=== PATIENT | male | born 1980 | race Caucasian/White ===

== ENCOUNTER 2025-10-17 21:22 | Emergency (ER) | payer MEDICAID, OTHER ==
[~2025-10-17] VITALS: Ht 167.6 cm; Wt 70.3 kg
[2025-10-17] MEDS: IV NS 0.9% 1,000 ML BAG IV ONE ×2 (22:00→23:00)
[2025-10-17] MEDS ORDERED: INSU100V7 SQ (22:01)
[2025-10-17] MEDS ORDERED: INSULIN GLARGINE, 100 UNIT/ML CARTRIDGE SQ ONE (22:36)
[2025-10-17] MEDS: INSULIN GLARGINE, 100 UNIT/ML CARTRIDGE SQ SCH (22:54)
[2025-10-17 23:15] LABS: AMPHETAMINE, URINE NEGATIVE (NEGATIVE); BARBITURATE, URINE NEGATIVE (NEGATIVE); BENZODIAZEPINE, URINE NEGATIVE (NEGATIVE); CANNABINOID, URINE NEGATIVE (NEGATIVE); COCCAINE, URINE NEGATIVE (NEGATIVE); OPIATE, URINE NEGATIVE (NEGATIVE)
[2025-10-17 23:17] LABS: APPEARANCE,URINE CLEAR (CLEAR); BLOOD, URINE NEGATIVE Ery/uL (NEGATIVE); LEUKOCYTE ESTERASE ,URINE NEGATIVE (NEGATIVE); NITRITE, URINE NEGATIVE (NEGATIVE); UGLUCOSE 3+ mg/dL (NEGATIVE)
[2025-10-17 23:30] LABS: ADD URINE CULTURE NO; SQUAMOUS EPITHELIAL CELL,UR 0-2 /HPF (None Seen)
[2025-10-18 00:42] LABS: PLATELET COUNT (AUTO) 270 K/uL (150-450); RED BLOOD CELL COUNT(AUTO) 4.30 MIL/uL (4.5-6.0); RED CELL DISTRIBUTION WIDTH 15.3 % (11.5-15.0); WHITE BLOOD COUNT (AUTO) 6.1 K/uL (4.3-11.0)
[2025-10-18 00:57] LABS: ALCOHOL, BLOOD < 3 mg/dL (0-10); ASPARTATE AMINOTRANSFERASE 22 U/L (15-37); CALCIUM, SERUM 9.0 mg/dL (8.5-10.1); CREATININE 1.5 mg/dL (0.6-1.3); SODIUM SERUM 137 mmol/L (136-145); TOTAL PROTEIN, SERUM 6.5 g/dL (6.4-8.2); UREA NITROGEN, BLOOD 25 mg/dL (7-18)
[2025-10-18] MEDS: INSULIN REGULAR, HUMAN 100 UNIT/ML 10 ML VIAL IV ONE (01:09)
[2025-10-18 01:58] LABS: FLOW, VBG 0.00 L/min (0.00-30.00); FRACTIONATED INSPIRED OXYGEN-V 21.0 %; SITE, VBG VBG - N/A; VBG BASE EXCESS -1.5 mmol/L (-2.0-3.0); VBG HCO3 25.3 mmol/L (22.0-29.0); VBG MetHb 0.1 % (0.5-1.5); VBG OXYGEN SATURATION 50.1 % (60.0-85.0); VBG PCO2 51.2 mmHg (38.0-54.0); VBG PH 7.312 (7.320-7.430); VBG PO2 29.2 mmHg (23.0-48.0); VBG TOTAL HEMOGLOBIN 13.9 G/dL (13.5-17.5)
[2025-10-18] MEDS: ONDANSETRON 4 MG TAB.RAPDIS SL ONE (02:52)
[2025-10-18] MEDS ORDERED: ONDANSETRON 4 MG TAB.RAPDIS ONE (02:52)
[2025-10-18] MEDS ORDERED: DIPHENOXYLATE HCL/ATROP SULF 1 UDTAB TABLET ONE (02:52)
[2025-10-18] MEDS: DIPHENOXYLATE HCL/ATROP SULF 1 UDTAB TABLET PO ONE (02:52)
[2025-10-18 04:39] VITALS: BP 132/77; TEMP 98.1; O2SAT 97
[2025-10-30] MEDS ORDERED: NITR100C15 PO (16:12)
== END 2025-10-18 04:42 ==
LOC: ER 21:37
DX: E11.65 Type 2 diabetes mellitus with hyperglycemia (principal); E78.5 Hyperlipidemia, unspecified; F31.9 Bipolar disorder, unspecified; I51.9 Heart disease, unspecified; N40.0 Benign prostatic hyperplasia without lower urinary tract symptoms; Z79.4 Long term (current) use of insulin; Z79.899 Other long term (current) drug therapy
CPT/HCPCS: 99284; 96372; 96374; 96361; 82803 ×2; 85025; 82010; 81001; 36415; 80053; 82962 ×2; 80143; 80320; 80307; J1815 ×2; Q0162; 80076-TC; G0480

== ENCOUNTER 2025-10-22 05:10 | Inpatient (IN) | payer OTHER ==
[~2025-10-22] VITALS: Ht 157.5 cm; Wt 76.2 kg
[~2025-10-22 05:10] MED LIST: INSU100V7 SQ
[2025-10-22] MEDS: IV LR 1000 ML 1,000 ML IV ONE (05:42)
[2025-10-22 05:49] LABS: PLATELET COUNT (AUTO) 257 K/uL (150-450); RED BLOOD CELL COUNT(AUTO) 4.19 MIL/uL (4.5-6.0); RED CELL DISTRIBUTION WIDTH 15.5 % (11.5-15.0); WHITE BLOOD COUNT (AUTO) 9.8 K/uL (4.3-11.0)
[2025-10-22 05:57] LABS: CALCIUM, SERUM 9.1 mg/dL (8.5-10.1); CREATININE 1.8 mg/dL (0.6-1.3); SODIUM SERUM 140.0 mmol/L (136-145); UREA NITROGEN, BLOOD 50.0 mg/dL (7-18)
[2025-10-22 06:00] LABS: PHOSPHORUS 4.8 mg/dL (2.5-4.9)
[2025-10-22 06:03] LABS: ASPARTATE AMINOTRANSFERASE 16.0 U/L (15-37); TOTAL PROTEIN, SERUM 6.9 g/dL (6.4-8.2)
[2025-10-22 07:01] LABS: APPEARANCE,URINE CLEAR (CLEAR); BLOOD, URINE NEGATIVE Ery/uL (NEGATIVE); LEUKOCYTE ESTERASE ,URINE NEGATIVE (NEGATIVE); NITRITE, URINE NEGATIVE (NEGATIVE); UGLUCOSE 3+ mg/dL (NEGATIVE)
[2025-10-22 07:14] LABS: ADD URINE CULTURE NO; SQUAMOUS EPITHELIAL CELL,UR None Seen /HPF (None Seen)
[2025-10-22] MEDS: LORAZEPAM INJ 2 MG/ML VIAL IV ONE (08:17)
[2025-10-22 09:49] LABS: SERUM AMMONIA 7 umol/L (11-32)
[2025-10-22 13:49] LABS: AMPHETAMINE, URINE NEGATIVE (NEGATIVE); BARBITURATE, URINE NEGATIVE (NEGATIVE); BENZODIAZEPINE, URINE NEGATIVE (NEGATIVE); CANNABINOID, URINE NEGATIVE (NEGATIVE); COCCAINE, URINE NEGATIVE (NEGATIVE); OPIATE, URINE NEGATIVE (NEGATIVE)
[2025-10-22] MEDS: INSULIN REGULAR, HUMAN 100 UNIT/ML 10 ML VIAL SQ ONE ×2 (17:01→19:07)
[2025-10-22 17:36] LABS: CALCIUM, SERUM 8.6 mg/dL (8.5-10.1); CREATININE 1.6 mg/dL (0.6-1.3); SODIUM SERUM 134.0 mmol/L (136-145); UREA NITROGEN, BLOOD 43.0 mg/dL (7-18)
[2025-10-22] MEDS ORDERED: INSULIN REGULAR, HUMAN 100 UNIT/ML 10 ML VIAL ONE (19:01)
[2025-10-22 21:20] LABS: FRACTIONATED INSPIRED OXYGEN-V 21.0 %; SITE, VBG VBG - N/A; VBG BASE EXCESS 0.1 mmol/L (-2.0-3.0); VBG HCO3 26.8 mmol/L (22.0-29.0); VBG MetHb 0.1 % (0.5-1.5); VBG OXYGEN SATURATION 66.2 % (60.0-85.0); VBG PCO2 51.7 mmHg (38.0-54.0); VBG PH 7.332 (7.320-7.430); VBG PO2 38.3 mmHg (23.0-48.0); VBG TOTAL HEMOGLOBIN 13.5 G/dL (13.5-17.5)
[2025-10-22] MEDS ORDERED: DEXTROSE 50%-WATER 50 ML DISP.SYRIN ONE (21:46)
[2025-10-22] MEDS: DEXTROSE 50%-WATER 50 ML DISP.SYRIN IVP ONE (21:52)
[2025-10-22] MEDS ORDERED: DEXTROSE 50%-WATER 50 ML DISP.SYRIN IV PRN (23:30)
[2025-10-23] MEDS: IV NS 0.9% 1,000 ML IV PRN (01:10)
[2025-10-23 04:45] VITALS: BP 147/76; TEMP 98.1; O2SAT 97
[2025-10-23] MEDS: BLOOD SUGAR DIAGNOSTIC 1 EACH STRIP IN SCH (06:33)
[2025-10-23 06:58] LABS: PLATELET COUNT (AUTO) 239 K/uL (150-450); RED BLOOD CELL COUNT(AUTO) 4.62 MIL/uL (4.5-6.0); RED CELL DISTRIBUTION WIDTH 15.3 % (11.5-15.0); WHITE BLOOD COUNT (AUTO) 7.1 K/uL (4.3-11.0)
[2025-10-23 07:00] VITALS: BP 122/64; TEMP 97.4; O2SAT 94
[2025-10-23 07:09] LABS: CALCIUM, SERUM 9.1 mg/dL (8.5-10.1); CREATININE 1.4 mg/dL (0.6-1.3); PHOSPHORUS 4.9 mg/dL (2.5-4.9); SODIUM SERUM 143.0 mmol/L (136-145); UREA NITROGEN, BLOOD 39.0 mg/dL (7-18)
[2025-10-23] MEDS: PANTOPRAZOLE 40 MG TABLET.DR PO SCH (07:54)
[2025-10-23] MEDS: INSULIN REGULAR, HUMAN 100 UNIT/ML 3 ML VIAL SQ PRN (12:22)
[2025-10-23 16:00] VITALS: BP 139/86; TEMP 97.3; O2SAT 97
[2025-10-23] MEDS ORDERED: SITA50TA PO (16:04)
[2025-10-23] MEDS ORDERED: INSU100V9 SQ (16:04)
[2025-10-23] MEDS ORDERED: IBUP-1953 PO (16:04)
[2025-10-23] MEDS ORDERED: TAMS-12 PO (16:04)
[2025-10-23] MEDS ORDERED: OLANZAPINE ZYDIS PO (16:04)
[2025-10-23] MEDS ORDERED: LORA-259 PO (16:04)
[2025-10-23] MEDS ORDERED: ESCI10TA PO (16:04)
[2025-10-23] MEDS ORDERED: TEMA15CA PO (16:04)
[2025-10-23] MEDS ORDERED: INSU100V7 SQ ×2 (16:04)
[2025-10-23] MEDS ORDERED: EMPA10TA PO (16:04)
[2025-10-23] MEDS ORDERED: DIVA500T54 PO (16:04)
[2025-10-23] MEDS ORDERED: GABA600T12 PO (16:04)
[2025-10-23] MEDS: ACETAMINOPHEN 325 MG TABLET PO PRN (17:55)
[2025-10-23] MEDS: INSULIN GLARGINE, 100 UNIT/ML CARTRIDGE SQ SCH (22:21)
[2025-10-24 08:00] VITALS: BP 123/78; TEMP 97.5; O2SAT 96
[2025-10-24 11:28] LABS: PLATELET COUNT (AUTO) 214 K/uL (150-450); RED BLOOD CELL COUNT(AUTO) 4.57 MIL/uL (4.5-6.0); RED CELL DISTRIBUTION WIDTH 14.9 % (11.5-15.0); WHITE BLOOD COUNT (AUTO) 9.7 K/uL (4.3-11.0)
[2025-10-24 11:39] LABS: CALCIUM, SERUM 8.5 mg/dL (8.5-10.1); CREATININE 1.6 mg/dL (0.6-1.3); SODIUM SERUM 137.0 mmol/L (136-145); UREA NITROGEN, BLOOD 39.0 mg/dL (7-18)
[2025-10-24 13:26] LABS: APPEARANCE,URINE CLOUDY (CLEAR); BLOOD, URINE 1+ Ery/uL (NEGATIVE); LEUKOCYTE ESTERASE ,URINE 1+ (NEGATIVE); NITRITE, URINE POSITIVE (NEGATIVE); UGLUCOSE 3+ mg/dL (NEGATIVE)
[2025-10-24 13:27] LABS: CREATININE, URINE 62.0 MG/DL (30.0-125.0); URINE SODIUM, RANDOM 57.0 mmol/l (40-220); URINE TOTAL PROTEIN 62.5 mg/dL (0-11.9)
[2025-10-24 13:32] LABS: ADD URINE CULTURE YES; SQUAMOUS EPITHELIAL CELL,UR Rare /HPF (None Seen)
[2025-10-24] MEDS: CEFTRIAXONE 1 G in IV D5W 50 ML IV SCH (15:07)
[2025-10-24] MEDS: PHENAZOPYRIDINE HCL 200 MG TABLET PO PRN (16:52)
[2025-10-24] MEDS: INSULIN REGULAR, HUMAN 100 UNIT/ML 10 ML VIAL SQ ONE (18:07)
[2025-10-24 20:00] VITALS: BP 114/80; TEMP 97.7; O2SAT 96
[2025-10-25 06:20] LABS: PLATELET COUNT (AUTO) 237 K/uL (150-450); RED BLOOD CELL COUNT(AUTO) 4.44 MIL/uL (4.5-6.0); RED CELL DISTRIBUTION WIDTH 15.3 % (11.5-15.0); WHITE BLOOD COUNT (AUTO) 7.4 K/uL (4.3-11.0)
[2025-10-25 06:40] LABS: ASPARTATE AMINOTRANSFERASE 22.0 U/L (15-37); CALCIUM, SERUM 8.5 mg/dL (8.5-10.1); CREATININE 1.5 mg/dL (0.6-1.3); PHOSPHORUS 3.9 mg/dL (2.5-4.9); SODIUM SERUM 138.0 mmol/L (136-145); TOTAL PROTEIN, SERUM 6.9 g/dL (6.4-8.2); UREA NITROGEN, BLOOD 37.0 mg/dL (7-18)
[2025-10-25 08:00] VITALS: BP 142/92; TEMP 97.9; O2SAT 96
[2025-10-25 08:24] VITALS: BP 142/92; TEMP 97.9; O2SAT 96
[2025-10-25] MEDS: ONDANSETRON HCL/PF 4 MG/2 ML VIAL IVP PRN (09:40)
[2025-10-25] MEDS: GABAPENTIN 300 MG CAPSULE PO ONE (09:58)
[2025-10-25] MEDS: IBUPROFEN 400 MG TABLET PO ONE (09:58)
[2025-10-25] MEDS ORDERED: IV NS 0.9% 1,000 ML IV PRN (10:00)
[2025-10-25 16:00] VITALS: BP 121/82; TEMP 97.7; O2SAT 98
[2025-10-25] MEDS ORDERED: LORAZEPAM 1 MG TABLET PO PRN (16:00)
[2025-10-25] MEDS ORDERED: TEMAZEPAM 15 MG CAPSULE PO PRN (16:00)
[2025-10-25] MEDS: GABAPENTIN 300 MG CAPSULE PO SCH (17:12)
[2025-10-25 17:20] LABS: CALCIUM, SERUM 8.4 mg/dL (8.5-10.1); CREATININE 1.6 mg/dL (0.6-1.3); SODIUM SERUM 137.0 mmol/L (136-145); UREA NITROGEN, BLOOD 43.0 mg/dL (7-18)
[2025-10-25 17:42] VITALS: BP 121/82; TEMP 97.7; O2SAT 98
[2025-10-25 20:00] VITALS: BP 131/94; TEMP 97.9; O2SAT 96
[2025-10-25] MEDS ORDERED: INSULIN GLARGINE, 100 UNIT/ML CARTRIDGE SQ SCH (22:00)
[2025-10-25] MEDS: INSULIN GLARGINE, 100 UNIT/ML CARTRIDGE SQ SCH (22:55)
[2025-10-26] MEDS: IBUPROFEN 400 MG TABLET PO PRN (05:15)
[2025-10-26 06:30] LABS: PLATELET COUNT (AUTO) 261 K/uL (150-450); RED BLOOD CELL COUNT(AUTO) 4.28 MIL/uL (4.5-6.0); RED CELL DISTRIBUTION WIDTH 15.0 % (11.5-15.0); WHITE BLOOD COUNT (AUTO) 7.4 K/uL (4.3-11.0)
[2025-10-26 07:02] LABS: ASPARTATE AMINOTRANSFERASE 22.0 U/L (15-37); CALCIUM, SERUM 8.2 mg/dL (8.5-10.1); CREATININE 1.6 mg/dL (0.6-1.3); PHOSPHORUS 3.7 mg/dL (2.5-4.9); SODIUM SERUM 140.0 mmol/L (136-145); TOTAL PROTEIN, SERUM 7.1 g/dL (6.4-8.2); UREA NITROGEN, BLOOD 38.0 mg/dL (7-18)
[2025-10-26] MEDS: TAMSULOSIN 0.4 MG CAP.SR.24H PO SCH (08:05)
[2025-10-26] MEDS: ESCITALOPRAM OXALATE (10 MG) 10 MG TABLET PO SCH (08:05)
[2025-10-26] MEDS: DIVALPROEX SODIUM 500 MG TABLET.DR PO SCH (08:05)
[2025-10-26] MEDS ORDERED: Medication Not On Formulary EA (Insulin Glargine,Hum.rec.anlog (Lantus) 20 UNIT) SQ SCH (09:00)
[2025-10-26 10:49] VITALS: BP 124/88; TEMP 98.1; O2SAT 98
[2025-10-26 20:00] VITALS: BP 133/94; TEMP 97.3; O2SAT 97
[2025-10-27 08:00] VITALS: BP 124/76; TEMP 98.4; O2SAT 98
[2025-10-27 08:05] LABS: PLATELET COUNT (AUTO) 239 K/uL (150-450); RED BLOOD CELL COUNT(AUTO) 4.31 MIL/uL (4.5-6.0); RED CELL DISTRIBUTION WIDTH 14.8 % (11.5-15.0); WHITE BLOOD COUNT (AUTO) 5.9 K/uL (4.3-11.0)
[2025-10-27 08:37] LABS: ASPARTATE AMINOTRANSFERASE 30.0 U/L (15-37); CALCIUM, SERUM 8.2 mg/dL (8.5-10.1); CREATININE 1.2 mg/dL (0.6-1.3); PHOSPHORUS 2.9 mg/dL (2.5-4.9); SODIUM SERUM 141.0 mmol/L (136-145); TOTAL PROTEIN, SERUM 6.6 g/dL (6.4-8.2); UREA NITROGEN, BLOOD 35.0 mg/dL (7-18)
[2025-10-27 16:00] VITALS: BP 116/79; TEMP 98.5; O2SAT 97
[2025-10-27 20:00] VITALS: BP 134/89; TEMP 97.3; O2SAT 96
[2025-10-28 08:00] VITALS: BP 139/98; TEMP 99.3; O2SAT 98
[2025-10-28 16:00] VITALS: BP 134/84; TEMP 98.8; O2SAT 96
[2025-10-28 20:00] VITALS: BP 152/87; TEMP 97.9; O2SAT 97
[2025-10-28] MEDS: NITROFURANTOIN/MONOHYDRATE MACROCRYSTALS 100 MG CAPSULE PO SCH (22:33)
[2025-10-28 22:50] LABS: CALCIUM, SERUM 8.0 mg/dL (8.5-10.1); CREATININE 1.5 mg/dL (0.6-1.3); SODIUM SERUM 135.0 mmol/L (136-145); UREA NITROGEN, BLOOD 30.0 mg/dL (7-18)
[2025-10-28] MEDS: INSULIN REGULAR, HUMAN 100 UNIT/ML 10 ML VIAL SQ ONE (23:34)
[2025-10-29 08:30] VITALS: BP 146/80; TEMP 98.4; O2SAT 97
[2025-10-29 16:27] VITALS: BP 122/72; TEMP 97.5; O2SAT 96
[2025-10-29 16:53] LABS: PLATELET COUNT (AUTO) 270 K/uL (150-450); RED BLOOD CELL COUNT(AUTO) 4.58 MIL/uL (4.5-6.0); RED CELL DISTRIBUTION WIDTH 14.8 % (11.5-15.0); WHITE BLOOD COUNT (AUTO) 8.0 K/uL (4.3-11.0)
[2025-10-29 17:22] LABS: CALCIUM, SERUM 8.7 mg/dL (8.5-10.1); CREATININE 1.6 mg/dL (0.6-1.3); PHOSPHORUS 2.8 mg/dL (2.5-4.9); SODIUM SERUM 141.0 mmol/L (136-145); UREA NITROGEN, BLOOD 28.0 mg/dL (7-18)
[2025-10-29 20:00] VITALS: BP 122/82; TEMP 97.9; O2SAT 95
[2025-10-30 05:53] LABS: PLATELET COUNT (AUTO) 238 K/uL (150-450); RED BLOOD CELL COUNT(AUTO) 4.34 MIL/uL (4.5-6.0); RED CELL DISTRIBUTION WIDTH 14.7 % (11.5-15.0); WHITE BLOOD COUNT (AUTO) 6.6 K/uL (4.3-11.0)
[2025-10-30 06:12] LABS: CALCIUM, SERUM 8.2 mg/dL (8.5-10.1); CREATININE 1.3 mg/dL (0.6-1.3); PHOSPHORUS 3.0 mg/dL (2.5-4.9); SODIUM SERUM 142.0 mmol/L (136-145); UREA NITROGEN, BLOOD 26.0 mg/dL (7-18)
[2025-10-30 16:00] VITALS: BP 128/84; TEMP 98.1; O2SAT 96
[2025-10-30] MEDS ORDERED: NITR100C15 PO (16:12)
[2025-10-30 20:00] VITALS: BP 121/87; TEMP 98.2; O2SAT 95
[2025-10-31 08:00] VITALS: BP 135/102; TEMP 98.2; O2SAT 96
== END 2025-10-31 12:56 | disposition home or self-care (01) | DRG 420 ==
LOC: ER 05:14 → MED 21:45
PROVIDERS: ADMIT Nurse Practitioner Family; ATTEND Nurse Practitioner Acute Care
DX: E10.69 Type 1 diabetes mellitus with other specified complication (principal); N17.0 Acute kidney failure with tubular necrosis; G93.41 Metabolic encephalopathy; B95.7 Other staphylococcus as the cause of diseases classified elsewhere; E87.0 Hyperosmolality and hypernatremia; D64.9 Anemia, unspecified; E10.22 Type 1 diabetes mellitus with diabetic chronic kidney disease; E10.65 Type 1 diabetes mellitus with hyperglycemia; N39.0 Urinary tract infection, site not specified; F32.A Depression, unspecified; N18.9 Chronic kidney disease, unspecified; F39 Unspecified mood [affective] disorder; E86.0 Dehydration; E10.649 Type 1 diabetes mellitus with hypoglycemia without coma; E78.5 Hyperlipidemia, unspecified; E83.89 Other disorders of mineral metabolism; Z79.4 Long term (current) use of insulin
CPT/HCPCS: 36415; 70450-TC; 71045-TC; 76770-TC; 80048-TC; 80053-TC; 80076-TC; 81001; 82140-TC; 82570-TC; 82803-TC; 82962-TC; 83735-TC; 84100-TC; 84300-TC; 84443-TC; 85025-TC; 87086-TC; 87186-TC; A4223; G0378; G0480; J0696; J1815; J2060; J2405; J7030; J7040; J7060; J7120